=== PATIENT | female | born 1950 | race Hispanic/Latino ===

== ENCOUNTER 2023-12-04 18:51 | Emergency (ER) | payer SELFPAY ==
[2023-12-04 18:52] VITALS: BP 148/63; PULSE 77; RESP 16; TEMP 36.7; O2SAT 97; BMI 25.4
[2023-12-04 18:54] VITALS: BP 148/63; PULSE 73; RESP 16; TEMP 36.7; O2SAT 97
--- NOTE | 2023-12-04 19:21 | EKG12_ITS ---
Test Reason : DYSRHYTHMIA Blood Pressure : / mmHG Vent. Rate : 073 BPM Atrial Rate : 073 BPM P-R Int : 118 ms QRS Dur : 130 ms QT Int : 426 ms P-R-T Axes : 019 004 115 degrees QTc Int : 469 ms Sinus rhythm with Premature atrial complexes Left bundle branch block Abnormal ECG Confirmed by MIGUE MCINTYRE, DEBORAH ([id number]), medical transcription editor TOMAS ROWAN ([id number]) on 12/05/2023 2:50:36 PM Referred By: Confirmed By:DEBORAH CAMARENA MD
[2023-12-04] MEDS: 0.9% Normal Saline (1000mL) 1,000 ML 1000 ML IV (19:40)
--- NOTE | 2023-12-04 19:52 | EX.ED.DYSGE1 ---
HPI History of Present Illness Chief Complaint: Weakness Informant: patient Narrative Narrative: Patient is a 73-year-old female with history of insulin-dependent diabetes melitis presenting with generalized weakness. Patient had a positive home COVID test. Took vitamin C but did not not take any other medication for COVID. Has not been eating or drinking much. Generally feels weak. Is been having hot and cold episodes. Denies any shortness of breath or chest pain. No she has had a minor cough with some productive sputum. Denies any dizziness or lightheadedness but generally feels weak and unsteady. No report of any nausea, vomiting or abdominal pain. No urinary symptoms reported. No other complaints or concerns at this time. PFSH PFSH Allergy/AdvReac Type Severity Reaction Status Date / Time Penicillins (PCN) Allergy Mild Rash Verified 12/04/23 18:55 Social History Smoking Status: Never smoker ROS ROS ED Constitutional Constitutional ED: Reports chills and sweats; Denies fever(s) Eyes Eyes: Denies change in vision ENT ENT ED: Denies ear pain, rhinorrhea or sore throat Cardiovascular Cardiovascular: Denies chest pain or palpitations Respiratory/Chest Respiratory/Chest: Reports cough and sputum; Denies dyspnea Gastrointestinal Gastrointestinal: Denies abdominal pain, nausea or vomiting Musculoskeletal Musculoskeletal: Denies arthralgias or myalgias Integumentary Denies rash Neurologic Neurologic: Reports weakness; Denies headache(s) or paresthesias Hematologic/Lymphatic Hematologic/Lymphatic: Denies easy bleeding or easy bruising EXAM Physical Exam Const Vital Signs: 12/04/23 18:52 12/04/23 18:54 12/04/23 20:03 Temperature 98.1 F 98.1 F Temperature Source Temporal Temporal Pulse Rate 77 73 Pulse Rate [Lying] 66 Pulse Rate [Sitting (for 1 minute prior to obtaining)] 69 Pulse Rate [Standing (for 1 minute prior to obtaining)] 81 Respiratory Rate 16 16 Respiratory Effort Respiratory Pattern Blood Pressure 148/63 H 148/63 H Blood Pressure [Lying] 173/66 H Blood Pressure [Sitting (for 1 minute prior to obtaining)] 171/64 H Blood Pressure [Standing (for 1 minute prior to obtaining)] 165/77 H Blood Pressure Mean 91 91 Blood Pressure Mean [Lying] 101 Blood Pressure Mean [Sitting (for 1 minute prior to obtaining)] 99 Blood Pressure Mean [Standing (for 1 minute prior to obtaining)] 106 Pulse Ox 97 97 Oxygen Delivery Method Room Air Room Air 12/04/23 20:50 12/04/23 20:53 12/04/23 21:00 Temperature 98.3 F 98.3 F Temperature Source Oral Oral Pulse Rate 68 59 L Pulse Rate [Lying] Pulse Rate [Sitting (for 1 minute prior to obtaining)] Pulse Rate [Standing (for 1 minute prior to obtaining)] Respiratory Rate 20 H 20 H Respiratory Effort Normal Non-Labored Respiratory Pattern Tachypnea Blood Pressure 162/68 H 148/66 H Blood Pressure [Lying] Blood Pressure [Sitting (for 1 minute prior to obtaining)] Blood Pressure [Standing (for 1 minute prior to obtaining)] Blood Pressure Mean 99 93 Blood Pressure Mean [Lying] Blood Pressure Mean [Sitting (for 1 minute prior to obtaining)] Blood Pressure Mean [Standing (for 1 minute prior to obtaining)] Pulse Ox 97 96 Oxygen Delivery Method Room Air Room Air 12/04/23 22:00 Temperature 98.3 F Temperature Source Pulse Rate 71 Pulse Rate [Lying] Pulse Rate [Sitting (for 1 minute prior to obtaining)] Pulse Rate [Standing (for 1 minute prior to obtaining)] Respiratory Rate 20 H Respiratory Effort Respiratory Pattern Blood Pressure 145/69 H Blood Pressure [Lying] Blood Pressure [Sitting (for 1 minute prior to obtaining)] Blood Pressure [Standing (for 1 minute prior to obtaining)] Blood Pressure Mean 94 Blood Pressure Mean [Lying] Blood Pressure Mean [Sitting (for 1 minute prior to obtaining)] Blood Pressure Mean [Standing (for 1 minute prior to obtaining)] Pulse Ox 97 Oxygen Delivery Method Positive well nourished and well developed General Appearance ED: well developed and NAD HEENT Reports TM's clear and moist mucous membranes Tympanic Membrane ED: Yes TM's clear Eyes PERRL and EOMs intact bilaterally Neck supple and no JVD Chest Wall inspection of chest normal and palpation of chest normal Resp normal respiratory effort and clear to auscultation bilaterally Cardio regular rate, regular rhythm and no murmurs GI normal to inspection, nondistended, normoactive bowel sounds and non-tender Extremity normal to inspection General Extremety ED: Negative for edema General Extremity: Negative for edema Neuro oriented x3 Neuro Narrative: No focal deficits appreciated Sensorium / Orientation: alert Motor Exam: general weakness Psych mental status grossly normal Skin no rashes or lesions noted and no wounds MDM MDM MDM Narrative Medical decision making narrative: Patient evaluated for generalized weakness with recent COVID-19 infection. Had a positive home test I do not think she requires repeat testing as she is outside of the window for Paxlovid or other antiviral treatment (test was 1 week ago). Orthostatic vital signs are negative. Vital signs remarkable for hypertension. Nursing staff does report to me that patient was a little weak when she went to go to the bathroom but did not fall or have any type of syncopal event. Will obtain basic labs including CBC, BMP checking for signs of dehydration or kidney injury or electrolyte abnormality, chest x-ray, urinalysis and give the patient IV fluids and reevaluate. EKG shows sinus rhythm with a left bundle branch block. I do not have any prior records for this patient. Chest x-ray reviewed by myself as well as radiology does not show an acute process. She does have a pacemaker in place. Her workup is largely negative including a CBC, CMP, troponin, lipase and urinalysis. I suspect this is more generalized weakness associate with her recent viral illness. Low suspicion for more insidious process. Her vital signs are normal. Orthostatics are normal. She does seem improved after receiving IV fluids. Will be discharged home with conservative treatment, alternate ibuprofen and Tylenol and pushing fluids. Patient agreeable this plan of care. Patient steady on her feet at time of discharge. Discharged home in stable condition. Lab Data Attestation: I reviewed the patient's lab results. Labs: Laboratory Results - last 24 hr 12/04/23 12/04/23 19:37 20:00 WBC 9.2 RBC 4.34 Hgb 12.1 Hct 39.5 MCV 91.0 MCH 27.9 MCHC 30.6 L RDW Std Deviation 43.2 RDW Coeff of Cesar 13.1 Plt Count 222 MPV 12.1 H Immature Gran % (Auto) 0.500 Neut % (Auto) 78.6 H Lymph % (Auto) 13.4 L Izard % (Auto) 6.9 Eos % (Auto) 0.4 Baso % (Auto) 0.2 Absolute Neuts (auto) 7.2 Absolute Lymphs (auto) 1.24 Nucleated RBC % 0 Sodium 135 L Potassium 4.2 Chloride 103 Carbon Dioxide 26.0 Anion Gap 6 BUN 10 Creatinine 0.96 Estim Creat Clear Calc 41.30 Est GFR (MDRD) Af Amer 73 Est GFR (MDRD) Non-Af 60 BUN/Creatinine Ratio 10.4 Glucose 240 H Calcium 9.8 Total Bilirubin 0.90 AST 19 ALT 18 Alkaline Phosphatase 100 Troponin I High Sens 14 Total Protein 6.7 Albumin 2.8 L Globulin 3.9 Albumin/Globulin Ratio 0.7 L Lipase 37 Urine Color Straw Urine Clarity Clear Urine pH 6.0 Ur Specific [place] 1.010 Urine Protein Negative Urine Glucose (UA) 1000 H Urine Ketones 5 H Urine Occult Blood Negative Urine Nitrite Negative Urine Bilirubin Negative Urine Urobilinogen Normal Ur Leukocyte Esterase Negative Urine RBC 0 SEEN Urine WBC 0 SEEN Ur Squamous Epith Cells 0-5 SEEN Urine Bacteria 0 SEEN Urine Mucus 0 SEEN Radiography Diagnostic Testing: Clinical Impression(s) from Imaging Studies Chest X-Ray 12/04/23 20:00 IMPRESSION: No acute disease Electronically Signed: Nikita Potts MD at 21:10 EDT Reading Location ID and State: [facility] / [place] Tel , Service support , Rhythm Strip Rhythm Strip: Sinus Rhythm Rate: 73 Ectopy: None EKG Initial EKG: Attestation: I personally reviewed and interpreted this EKG as follows: Interpretation: Sinus Rhythm Comments: Normal sinus rhythm rate of 73 bpm with PACs Left bundle branch block Normal axis Normal intervals otherwise with normal ST segments Discharge Plan Triage Chief Complaint: Weakness ED Provider: Angela Mcdaniel Dx/Rx/DC Orders Clinical Impression: Weakness, COVID-19 Instructions: Caring for Someone Who Has COVID-19, ED Weakness (Uncertain Cause) Primary Care Provider: Care Physician,No Primary Referrals: Cyril Coronel MD [Med Staff - Flow Specialist] - 3-5 Days if not improving Care Physician,No Primary [Primary Care Provider] - Activity Restrictions/Additional Instructions: Your lab work was largely normal today. Make sure you are drinking plenty of fluids at home. No signs of pneumonia or kidney injury today. Please follow-up with primary care doctor. If you do not have 1 you have been referred to 1 today. Print Language: Icelandic Disposition Disposition: Home, Self Care Discharge Date/Time: 12/04/23 22:04
[2023-12-04 19:58] LABS: Absolute Lymphocyte Count 1.24 X10^3/uL (0.83-4.51); Absolute Neutrophil Count 7.2 X10^3/uL (2.0-7.7); Basophil# 0.02 X10^3/uL; Basophil% 0.2 % (0-1); Eosinophil# 0.04 X10^3/uL; Eosinophils% 0.4 % (0-5); Hematocrit 39.5 % (37-47); Hemoglobin 12.1 g/dL (12.0-15.0); Lymphocyte # 1.24 X10^3/ul (0.83-4.51); Lymphocyte % 13.4 % (19-41); Mean Corp Hgb Conc 30.6 g/dL (32-36); Mean Corpuscular Hgb 27.9 pg (27.0-32.0); Mean Platelet Vol. 12.1 fl (6.2-12.0); Monocyte# 0.64 X10^3/uL; Monocyte% 6.9 % (0-10); NRBC Flagged by Analyzer 0 % (0-5); Neutrophil # 7.23 X10^3/uL (2.7-7.7); Neutrophil % 78.6 % (47-70); Platelet Count 222 K/mm3 (150-450); RBC Distribution Width CV 13.1 % (11.6-14.6); RBC Distribution Width SD 43.2 fl (35.1-43.9); Red Blood Count 4.34 M/mm3 (4.2-5.4); White Blood Count 9.2 K/mm3 (4.4-11.0)
--- NOTE | 2023-12-04 20:00 | RAD_ITS ---
STUDY: X-RAY CHEST REASON FOR EXAM: Female, 73 years old. cough TECHNIQUE: Frontal and lateral views of the chest. COMPARISON: None. FINDINGS: Bipolar pacer on the left. The lungs are clear and expanded. There is no demonstrated pleural abnormality. Normal size heart. Normal mediastinum and johana. Normal visualized pulmonary arteries. Normal visualized aortic arch and descending thoracic aorta. Kyphoscoliosis. Bony ankylosis at the thoracolumbar junction T12-L1. Normal visualized ribs, clavicles, and shoulders. There is no demonstrated abnormality of the visualized soft tissue structures of the upper abdomen. RAD/Chest PA and Lateral IMPRESSION: No acute disease Electronically Signed: Nikita Potts MD at 21:10 EDT ,
[2023-12-04 20:03] VITALS: BP 165/77; BP 171/64; BP 173/66; PULSE 66; PULSE 69; PULSE 81
[2023-12-04 20:13] LABS: Bacteria 0 SEEN /hpf (None Seen); Mucous, Urine 0 SEEN /hpf (<or=2+); Red Blood Cells-Urine 0 SEEN /hpf (0-5); White Blood Cells 0 SEEN /hpf (0-5)
[2023-12-04 20:24] LABS: ALB/GLOB Ratio 0.7 RATIO (0.9-2.4); AST(SGOT) 19 U/L (15-37); Alanine Aminotransfer ALT/SGPT 18 U/L (13-56); Albumin, Serum 2.8 g/dL (3.2-5.0); Alkaline Phosphatase 100 U/L (45-117); Anion Gap 6 (5-15); BUN 10 mg/dL (7-18); BUN/Creat Ratio 10.4 RATIO (10-20); Calcium,Total 9.8 mg/dL (8.5-10.1); Chloride 103 mmol/L (98-107); Creatinine, Serum 0.96 mg/dL (0.55-1.02); EST Glomerular Filtration Rate 60 mL/min (>60); Est Glom Filt Rate - Afr Amer 73 mL/min (>60); Globulin 3.9 g/dL (2.2-4.2); Glucose 240 mg/dL (74-106); Lipase 37 U/L (13-75); Potassium 4.2 mmol/L (3.5-5.1); Protein, Total 6.7 g/dL (6.4-8.2); Sodium Level 135 mmol/L (136-145); Troponin-I HS 14 pg/mL (3.0-54.0)
[2023-12-04 20:44] LABS: Glucose, Dipstick 1000 mg/dl (Normal); Ketone-Dipstick 5 mg/dl (Negative); Leukocyte Esterase-Dipstick Negative /ul (Negative); Nitrite-Dipstick Negative (Negative); Occult Blood-Urine Negative /ul (Negative); Protein-Dipstick Negative (Negative); Urine Bilirubin Dipstick Negative (Negative); Urine Clarity Clear (Clear); Urine Urobilinogen Normal (Normal)
[2023-12-04 20:53] VITALS: BP 162/68; PULSE 68; RESP 20; TEMP 36.8; O2SAT 97
[2023-12-04 20:58] LABS: Color, Urine Straw (Yellow)
[2023-12-04 21:00] VITALS: BP 148/66; PULSE 59; RESP 20; TEMP 36.8; O2SAT 96
[2023-12-04 21:00] LABS: Squamous Epithelial Cells - UA 0-5 SEEN /hpf (5-10)
[2023-12-04 22:00] VITALS: BP 145/69; PULSE 71; RESP 20; TEMP 36.8; O2SAT 97
== END 2023-12-04 22:04 | disposition home or self-care (01) ==
PROVIDERS: Emergency Provider Emergency Medicine; Visit Provider Emergency Medicine
DX: U07.1 COVID-19 (principal); I10 Essential (primary) hypertension; R53.1 Weakness; I44.7 Left bundle-branch block, unspecified; Z88.0 Allergy status to penicillin; Z86.39 Personal history of other endocrine, nutritional and metabolic disease; Z95.0 Presence of cardiac pacemaker
CPT/HCPCS: 71046; 80053; 81001; 83690; 84484; 85025; 93005; 96360; 99284; J7030; A4216